=== PATIENT | female | born 1975 | race Caucasian/White ===

== ENCOUNTER 2021-12-29 22:26 | Inpatient (IN) ==
[2021-12-29] MEDS ORDERED: SODIUM CHLORIDE 0.9% 1000ML 1,000 ML IV ONE (23:02)
[2021-12-29] MEDS ORDERED: MoRPHine SULFATE 4 MG/ML 1 ML CARP\\VIAL IV STA (23:02)
--- NOTE | 2021-12-29 23:04 | Emergency Department Note ---
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 Patient states that she gets chemotherapy every 3 weeks in [facility] where she sees her sarcoma specialist and she did just recently complete a round of chemotherapy this past week. On arrival here to the ED the patient is hemodynamically stable, she states she has had subjective fever/chills, states she continues to have dysuria, she had lab work obtained earlier this evening that showed a leukocytosis And urinalysis was concerning for urinary tract infection. Patient was therefore referred to the ED for further assessment. Patient denies any chest pain or shortness of breath, denies any vomiting states she has had some nausea. ROS: - : Urinary frequency, urgency, dysuria - GI: Nausea - GEN: Fever/chills *10 point review systems was conducted and is otherwise negative unless stated above *Outpatient medications and allergy history reviewed PE: General: Alert, NAD HEENT: Normocephalic, atraumatic Eyes: Extraocular eye movement is intact, no scleral erythema Pulmonary: Clear to auscultation bilaterally, no wheezing Cardio: Regular rate and rhythm GI: Abdomen is soft, nontender : Moderate suprapubic tenderness MSK: No evidence of trauma or malformation of the extremities, no edema Skin: No evidence of rash Neuro: Alert, no focal deficits Psychiatric: Cooperative outcome analyst: - An order was placed for continuous cardiac monitoring - Patient was noted to be in Sinus rhythm with a rate of 85 Medical Decision Making: Patient presented to the emergency department with symptoms concerning for urinary tract infection, complains of some subjective fever/chills, she is noted to be on chemotherapy and recently completed a round of chemotherapy this past week in [facility] where she sees her sarcoma specialist. Patient states that she is also on Neupogen. Patient's lab work was reviewed from earlier today, she did have evidence of a leukocytosis greater than 13,000, she was not noted to be neutropenic but she is on Neupogen.Blood cultures were obtained here in the ED as well as lactic acid level which was elevated at 2.2, given this in conjunction with her symptoms and leukocytosis as well as urinalysis concerning for infection, patient was treated with IV ceftriaxone and will be admitted to the hospitalist service for further care which the patient is in agreement with. She was given a dose of morphine here in the ED for discomfort with improvement. COVID-19 test is pending at the time of admission. Patient is in agreement to the above plan. [facility] Hospitalist service was consulted for admission. Diagnosis: 1. Urinary tract infection 2. Leukocytosis 3. History of liposarcoma, on chemotherapy Disposition: ADMIT Yimi Rob DO Emergency Medicine Past Med/Surg History Medical History Alternating constipation and diarrhea Anxiety Asthma hx -- no problems in several years Hx of colonic polyp Nausea and vomiting after administration of anesthetic agent Sarcoma of left lower extremity Surgical History H/O hemorrhoidectomy History of colonoscopy 03/2021 History of surgical removal of ganglion cyst right wrist S/P anal fissurectomy 2009 S/P section 2004, 2008, 2010 S/P hysterectomy partial 2017 left ovary remains S/P right oophorectomy right removed 2019 S/P tonsillectomy and adenoidectomy Family History Mother Diabetes Myocardial infarction Hypertension Stroke Aunt Ovarian cancer Uncle Prostate cancer Grandfather (Maternal) Colon cancer Father Brain cancer Grandmother (Paternal) Cancer liver Other No family history of adverse response to anesthesia Denies family history of Breast cancer Social History Smoking Status: Never smoker Second Hand Exposure: No; Hx Alcohol Use: Yes Alcohol type: wine Alcohol Intake Frequency: 2-4 x/Month Hx Substance Use: No Preferred Language: Irish Communication Ability: Effective Visual Impairment: No Limitations Hearing Ability: Normal Wheel Polisher Required: No Beliefs That Will Affect Care: None marital status: Current Living Situation: Spouse and Family Current Living Situation Comment: Lives with and 3 kids current occupational status: employed 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 How many Children do You have: 3 Feels Safe at Home: Yes during the past year weight has: increased > 10 lbs Dental Care, Regularly: Yes Physical Activity Frequency: 3-4 Times per Week Assistive Devices: None Allergies Allergies Allergy/AdvReac Type Severity Reaction Status Date / Time minocycline Allergy Intermediate Hives Verified 10/02/21 11:55 Home Meds Home Medications Medication Instructions Recorded Confirmed acetaminophen 500 mg tablet 1,000 mg PO Q6H PRN Pain 08/27/21 10/02/21 (Tylenol Extra Strength) docusate sodium 100 mg capsule 100 mg PO BID 08/27/21 10/02/21 (Colace) hydroxyzine HCl 25 mg tablet 25 mg PO QID PRN Anxiety 08/27/21 10/02/21 sennosides 8.6 mg tablet (senna) 8.6 mg PO HS 08/27/21 10/02/21 Results & Data (ED) Vital Signs Vital Signs - 24 hr 12/29/21 22:28 12/30/21 00:26 Temperature 36.0 C L Temperature Source Temporal Artery Scan Pulse Rate 93 H Pulse Rate [Finger] 90 Respiratory Rate 18 16 Respiratory Effort / Characteristics Non-Labored Respiratory Depth Normal Respiratory Pattern Regular Blood Pressure 142/88 H Blood Pressure [Right Arm] 137/74 Blood Pressure Mean 106 Blood Pressure Mean [Right Arm] 95 Blood Pressure Position [Right Arm] Lying Pulse Oximetry 95 96 Oxygen Delivery Method Room Air Room Air Sepsis Recent Fever Within 48 Hours No Sepsis New/Unexplained Change in Mental Status No Sepsis Action Taken by Nursing No Action Required Laboratory Data Lab Results 12/29/21 Range/Units 23:52 Lactate 2.2 H* (0.4-2.0) mmol/L Administered Medications Discontinued Medications Sodium Chloride (Nss 1000ml) 1,000 mls @ 999 mls/hr IV .Q1H1M ONE Stop: 12/30/21 00:02 Last Admin: 12/29/21 23:25 Dose: 999 mls/hr Documented By: FRANKLIN Ceftriaxone Sodium (Rocephin) 2,000 mg in 70 mls @ 140 mls/hr IV NOW STA Stop: 12/30/21 00:31 Last Admin: 12/30/21 00:22 Dose: 140 mls/hr Documented By: FRANKLIN Morphine Sulfate (Morphine Sulfate 4 Mg/Ml 1 Ml Carp\Vial) 4 mg IV NOW STA Stop: 12/29/21 23:03 Last Admin: 12/30/21 00:23 Dose: 4 mg Documented By: FRANKLIN Discharge Plan Visit Data Chief Complaint: Urinary Symptoms Stated Complaint: UTI ISSUE ED Provider: Yimi Rob Discharge Problem: UTI (urinary tract infection) Forms Stand Alone Forms: [facility] Prescriptions Prescriptions: No Action sennosides [senna] 8.6 mg Tablet 8.6 mg PO HS acetaminophen [Tylenol Extra Strength] 500 mg Tablet 1,000 mg PO Q6H PRN (Reason: Pain) docusate sodium [Colace] 100 mg Capsule 100 mg PO BID hydroxyzine HCl 25 mg tablet 25 mg PO QID PRN (Reason: Anxiety) Rx Instructions: TAKE ONE TABLET BY MOUTH FOUR TIMES DAILY Referrals Referrals: Richelle Downing CRNP [Primary Care Provider] - : UTI (urinary tract infection) Qualifiers: Urinary tract infection type: site unspecified Hematuria presence: with hematuria Qualified Code(s): N39.0 - Urinary tract infection, site not specified
[2021-12-30] MEDS ORDERED: cefTRIAXone SODIUM 2,000 MG/70 ML BAG IV STA (00:02)
--- NOTE | 2021-12-30 01:39 | History & Physical Report ---
Date of Service December 30, 2021 Assessment & Plan (1) UTI (urinary tract infection): Plan: Cris Short is a 46-year-old female with past medical history of liposarcoma status postresection currently on chemotherapy, GERD, anxiety who presented Due to urinary symptoms. Complicated UTI As above had UTI-like symptoms after a previous chemo course, which resolved with Bactrim but ultimately did not show any significant bacterial growth on urine culture Vital signs stable, did have low temperature to 36 C Leukocytosis 13.96, lactate 2.2 Ceftriaxone 2 g IV x1 in ED continue on this daily Blood and urine cultures taken and pending Continue maintenance IV fluids CBC, BMP, mag in a.m. Admit to med telemetry Sarcoma of left lower extremity Follows at [facility] in [facility] for sarcoma specialist Has received chemotherapy there, most recently last week Has appointment with radiation oncology here in [place] to discuss potentially starting radiation in this area Appointment on , which the patient is very hopeful she will be able to attend Anxiety Hydroxyzine 4 times daily as needed Allergic rhinitis Claritin daily GERD PPI Constipation Docusate twice daily Senna as needed DVT prophylaxis: Lovenox SQ Dispo: Admit to med telemetry Diet: Regular CODE STATUS: Full (2) Sarcoma of left lower extremity: (3) Anxiety: (4) Alternating constipation and diarrhea: History of Present Illness Primary Care Provider: JOSE ARMANDO Chang Cris Short is a 46-year-old female with past medical history of liposarcoma status postresection currently on chemotherapy, GERD, anxiety who presented Due to urinary symptoms. She has had dysuria, urgency, suprapubic discomfort for 5 to 6 days. Of note, she receives chemotherapy for her liposarcoma in [facility], and recently completed a round of chemo. She does state that after her last round of chemo she had similar symptoms and was treated for UTI at that time with Bactrim for 3 days. She states that her symptoms did resolve, but that the urine culture at that time did not show any significant bacterial growth. She also mentions that since this round of chemotherapy she has had some blood in her urine, which is a known side effect of her chemotherapeutic agent. She does report some subjective fever/chills. Also noted that she had some left lower back/flank pain with this current episode. No reports of chest pain, palpitations, nausea, vomiting, shortness of breath, cough, abdominal pain, headache, dizziness, weakness, numbness, tingling, rashes. In ED received NSS 1 L bolus x1, ceftriaxone 2 g x 1, morphine 4 mg x 1. Lab work significant for a leukocytosis of 13.96, hemoglobin of 10.3, normal electrolytes, lactate of 2.2. Her urinalysis was concerning for UTI. Urine and blood cultures were taken in the ED. Allergies Allergy/AdvReac Type Severity Reaction Status Date / Time minocycline Allergy Intermediate Hives Verified 10/02/21 11:55 Home Medications Medication Instructions Recorded Confirmed Type acetaminophen 500 mg tablet 1,000 mg PO Q6H PRN Pain 08/27/21 12/30/21 History (Tylenol Extra Strength) docusate sodium 100 mg capsule 100 mg PO BID 08/27/21 12/30/21 History (Colace) hydroxyzine HCl 25 mg tablet 25 mg PO QID PRN Anxiety 08/27/21 12/30/21 History sennosides 8.6 mg tablet (senna) 8.6 mg PO HS PRN Constipation 08/27/21 12/30/21 History dexamethasone 1 mg tablet 3 mg PO DAILY 12/30/21 12/30/21 History loratadine 10 mg tablet (Claritin) 10 mg PO DAILY 12/30/21 12/30/21 History omeprazole 20 mg tablet,delayed 20 mg PO BID 12/30/21 12/30/21 History release Past Med/Surg History Medical History (Updated 12/30/21 @ 13:48 by Bette Rivera) Alternating constipation and diarrhea Anxiety Asthma hx -- no problems in several years Hx of colonic polyp Nausea and vomiting after administration of anesthetic agent Sarcoma of left lower extremity Surgical History H/O hemorrhoidectomy History of colonoscopy 03/2021 History of surgical removal of ganglion cyst right wrist S/P anal fissurectomy 2008 S/P section 2004, 2008, 2010 S/P hysterectomy partial 2017 left ovary remains S/P right oophorectomy right removed 2019 S/P tonsillectomy and adenoidectomy Family History Mother Diabetes Myocardial infarction Hypertension Stroke Aunt Ovarian cancer Uncle Prostate cancer Grandfather (Maternal) Colon cancer Father Brain cancer Grandmother (Paternal) Cancer liver Other No family history of adverse response to anesthesia Denies family history of Breast cancer Social History Smoking Status: Never smoker Second Hand Exposure: No; Hx Alcohol Use: Yes Alcohol type: wine Alcohol Intake Frequency: 2-4 x/Month Hx Substance Use: No Preferred Language: Uzbek Communication Ability: Effective Visual Impairment: No Limitations Hearing Ability: Normal Urban Sociologist Required: No Beliefs That Will Affect Care: None marital status: Current Living Situation: Spouse Current Living Situation Comment: lives @ home w/ & 3 kids current occupational status: employed 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 NAD. HEENT: PERRL, EOMI. Moist mucous membranes. NECK: No JVD. No lymphadenopathy. CHEST/LUNGS: CTAB A/P. No crackles, wheezes, rales, rhonchi. HEART: RRR. No m/g/r. No carotid bruits. ABDOMEN: NT/ND, soft. BS+ x4. CVA tenderness on the left EXTREMITIES: No cyanosis, no clubbing, no edema SKIN: Warm and dry. No rashes or lesions. PSYCHIATRIC: Euthymic affect, no SI, no pressured speech, no hallucinations NEUROLOGIC: No FND. CN II-XII grossly intact. Results & Data Results & Data ([facility]) Vital Signs (Past 12 Hours) Vital Signs Temp Pulse Pulse Resp BP BP Pulse Ox 12/30/21 00:26 90 16 137/74 96 12/29/21 22:28 36.0 C L 93 H 18 142/88 H 95 O2 Del Method 12/30/21 00:26 Room Air 12/29/21 22:28 Room Air Supervising Physician Co-Signing Physician Notes Attending addendum: I have physically seen this patient, have supervised the medical residents activities, and agree with the H&P unless as otherwise noted. Assessment and Plan: Urinary tract infection/immunocompromised patient on chemotherapy- Follow urine culture and sensitivity Ceftriaxone 2 g IV daily Continue IV fluids Follow serial CBC with differential, chemistry and magnesium level Sarcoma of left lower extremity- [facility] in [facility] guiding care Ongoing chemotherapy care Radiation oncology locally Remaining orders and notations as noted Resident Activity Tracking Resident Involvement: Resident Care Provided Care Provided: Adult Hospital Medicine (1) UTI (urinary tract infection) Hematuria presence: with hematuria Urinary tract infection type: site unspecified Qualified Code(s): N39.0 - Urinary tract infection, site not specified; R31.9 - Hematuria, unspecified
[2021-12-30] MEDS ORDERED: ACETAMINOPHEN 500 MG TAB ONE (03:20)
[2021-12-30] MEDS ORDERED: ONDANSETRON INJ 2 MG/ML 2 ML VIAL IV PRN (04:26)
[2021-12-30] MEDS ORDERED: hydrOXYzine HCl 25 MG TAB PO PRN (04:26)
[2021-12-30] MEDS ORDERED: SENNA 8.6 MG TAB PO PRN (04:26)
[2021-12-30] MEDS ORDERED: ACETAMINOPHEN 500 MG TAB PO PRN (04:26)
[2021-12-30] MEDS ORDERED: POLYETHYLENE (MIRALAX) 17 GM PACK PO PRN (04:26)
[2021-12-30] MEDS ORDERED: MoRPHine SULFATE 2 MG/ML CARP IV PRN (04:33)
[2021-12-30] MEDS: SODIUM CHLORIDE 0.9% 1000ML 1,000 ML IV SCH ×2 (04:42→15:01)
--- NOTE | 2021-12-30 07:10 | Hospitalist Progress Note ---
Date of Service December 30, 2021 Assessment & Plan (1) UTI (urinary tract infection): Plan: Cris Short is a 46-year-old female with past medical history of liposarcoma status postresection currently on chemotherapy, GERD, anxiety who presented Due to urinary symptoms. Complicated UTI As above had UTI-like symptoms after a previous chemo course, which resolved with Bactrim but ultimately did not show any significant bacterial growth on urine culture Vital signs stable, did have low temperature to 36 C Leukocytosis 13.96, lactate 2.2 Ceftriaxone 2 g IV x1 in ED continue on this daily Blood and urine cultures taken and pending Continue maintenance IV fluids CBC, BMP, mag in a.m. Admit to med telemetry Sarcoma of left lower extremity Follows at [facility] in [facility] for sarcoma specialist Has received chemotherapy there, most recently last week Has appointment with radiation oncology here in [place] to discuss potentially starting radiation in this area Appointment on , which the patient is very hopeful she will be able to attend Anxiety Hydroxyzine 4 times daily as needed Allergic rhinitis Claritin daily GERD PPI Constipation Docusate twice daily Senna as needed DVT prophylaxis: Lovenox SQ Dispo: Admit to med telemetry Diet: Regular CODE STATUS: Full (2) Sarcoma of left lower extremity: (3) Anxiety: (4) Alternating constipation and diarrhea: Admission and Anticipated Discharge Date Admission Date: December 30, 2021 Subjective 46 year old female with a past medical history of liposarcoma s/p resection currently on chemotherapy, GERD, anxiety that presented with urinary symptoms; dysuria, urgency, suprapubic pain. fever/chills, left low back/flank pain Review of Systems Review of Systems: As per HPI Results & Data Results & Data ([facility]) Vital Signs (Past 12 Hours) Vital Signs Temp Pulse Pulse Resp BP BP Pulse Ox 12/30/21 04:26 70 12/30/21 04:26 36.9 C 70 16 113/70 98 12/30/21 04:26 36.9 C 70 16 113/70 98 12/30/21 03:53 82 21 140/82 97 12/30/21 02:00 69 19 112/72 96 12/30/21 00:26 90 16 137/74 96 12/29/21 22:28 36.0 C L 93 H 18 142/88 H 95 O2 Del Method 12/30/21 04:26 12/30/21 04:26 Room Air 12/30/21 04:26 Room Air 12/30/21 03:53 Room Air 12/30/21 02:00 Room Air 12/30/21 00:26 Room Air 12/29/21 22:28 Room Air (1) UTI (urinary tract infection) Hematuria presence: with hematuria Urinary tract infection type: site unspecified Qualified Code(s): N39.0 - Urinary tract infection, site not specified; R31.9 - Hematuria, unspecified
[2021-12-30] MEDS: HEPARIN SOD 5,000 UNIT/0.5 ML VIAL SQ SCH ×3 (08:33→20:11)
[2021-12-30 09:20] LABS: ALC (manual) 0.47 K/uL (1.2-3.4); Lymphocytes # (manual) 0.47 K/uL (1.2-3.4); Lymphocytes % (manual) 4 %; Neutrophils % (manual) 96 %
[2021-12-30 09:21] LABS: Hematocrit (blood only) 30.9 % (34.1-44.9); Hemoglobin 9.9 g/dl (12.0-16.0); Mean Corpuscular Hemoglobin 28.8 pg (25.0-34.0); Mean Corpuscular Volume 89.8 fL (80.0-100.0); Mean Platelet Volume 9.8 fL (9.4-12.3); Platelet Count 308 K/uL (130-400); RDW Standard Deviation 59.1 fL (36.4-46.3); Red Blood Count 3.44 M/uL (3.93-5.22); White Blood Count 11.67 K/ul (4.8-10.8)
[2021-12-30 09:27] LABS: Calcium 8.9 mg/dl (8.5-10.1); Creatinine Clr Calc Pharmacy 160.6 ml/min; Est GFR (African American) 135.5 ml/min; Est GFR (Non-African American) 116.9 ml/min; Magnesium 2.2 mg/dl (1.7-2.4); Potassium 3.8 mmol/L (3.5-5.1)
[2021-12-30] MEDS: DOCUSATE SODIUM 100 MG CAP PO SCH ×2 (09:28→20:11)
[2021-12-30] MEDS: LORATADINE 10 MG TAB PO SCH (09:28)
--- NOTE | 2021-12-30 10:57 | Hospitalist Progress Note ---
Date of Service December 30, 2021 Assessment & Plan (1) UTI (urinary tract infection): Plan: - Had UTI-like symptoms after a previous chemo course, which resolved with Bactrim but ultimately did not show any significant bacterial growth on urine culture. - Vital signs stable, did have low temperature to 36 C. - Leukocytosis, 13.96, lactate 2.2. - Ceftriaxone 2 g IV x 1 in ED - continue on this daily. - Blood and urine cultures taken and pending. - CBC results revealed anemia. MCV is normal, but RDW is high. - Monitor for further episodes of hematuria. - Consider CT scan for kidney stones. (2) Hematuria: Plan: - May be a side effect of ifosfamide - Called oncologist, who recommended q12 Hgb checks due to 2 point drop since 12/24 - Called oncologist, who recommended aggressive hydration - Called oncologist, who recommended urologist consult to check for obstruction (3) Sarcoma of left lower extremity: Plan: - Follows at [facility] for sarcoma. - Receives chemotherapy there, most recently lat week. - Has appointment with rad/onc here in [place] to discuss the potential of starting radiation therapy locally. This appointment is this and she is very hopeful to attend. (4) Anxiety: Plan: - Hydroxyzine 4 times daily as needed. (5) Alternating constipation and diarrhea: Plan: - Docusate twice daily, Senna as needed. (6) DVT prophylaxis: Plan: - Lovenox SQ - AM dose held by nursing 2/2 hematuria Admission and Anticipated Discharge Date Admission Date: December 30, 2021 Supervising Physician Co-Signing Physician Notes I personally examined the patient and verified all desouza points of history and exam, discussed case, and agree with decision making with Aneesh Rivera MS2 Urinary symptoms are feeling better. Blood clearing. Medical student called patient's oncologist and discussed situationreceived recommendations on phosphomide induced hemorrhagic cystitis. Vitals noted, in general she is awake and alert pleasant no distress. HEENT normocephalic atraumatic mucous membranes moist. Breathing unlabored no accessory muscle use good effort. Skin shows no rashes no pallor or icterus. Abdomen with mild suprapubic tenderness no guarding rebound or rigidity. Dysuriainfectious cystitis versus chemo induced hemorrhagic cystitiseither way appears to be improving. With negative culture it does increase concern on chemo induced, but certainly there are many urinary tract infections or other culture is equivocal or negative in the face of clearly infectious symptomsand she is immune compromisedso to that end continue ceftriaxone. Continue fluid support and follow hemoglobin. Per oncology recommendations will ask urology for evaluation. Likely home once symptoms have resolved as long as she continues to remain this hemodynamically stable. Etienne Lynch is a pleasant and friendly woman with a history of sarcoma s/p surgical resection of tumor and is currently seeing her oncologist in [place] for chemotherapy. Her last cycle of chemotherapy was last , Wednesday, and Wednesday. She presented to the ED yesterday with frequent urination and suprapubic fullness. She noted that she was aware this could be a side effect of her ifosfamide, but when she began having more frequent urination and pain, she arrived at the hospital. She was awake, alert, and finishing breakfast at bedside. She stated that she noticed improvement last night after her first dose of ceftriaxone, but this morning she "felt as though she was back where she started." She states that she is very tired because she is getting up to urinate every 20 to 30 minutes and cannot get adequate rest. She has persistent suprapubic fullness and and urge to urinate. She also has increased urethral irritation today. Patient stated that she would like us to call her oncologist's office at the number she provided to discuss her current treatment plan. Patient was given morphine for pain. She states that this helped her sleep, and she slept for a few hours last night/early this morning. Patient's second urine of the day produced several blood clots. This is new for her. Nursing withheld morning heparin as a result. At 2:11 PM, Cris's oncologist Dr. Trejo was called. She recommended q12 CBC checks as her Hgb dropped 2 points from 12/24/21. She also recommended aggressive hydration and a consult with urology for follow up to determine whether there is an obstruction. She requested that we follow up with her via phone or email tomorrow. Review of Systems Review of Systems: Const: WDWN. Appropriate affect. HEENT: No blurred vision, headaches, or dizziness. Normal neck ROM. Resp: No SOB or JACK. Cardio: No chest pain or pressure. GI: No nausea or diarrhea. : As per HPI. MS: No soreness or aches, normal ROM. Skin: No rashes. Neuro: No headaches or weakness. Endo: Per HPI. Heme/Lymph: As per HPI. Allergic/Imm: As per HPI. Psych: No homicidal or suicidal ideation. Physical Exam Physical Exam: Const: Pleasant. A&O x3. HEENT: Normocephalic, atraumatic, clear sclera, pink and moist mucous membranes. Resp: CAB no r/r/w. Cardio: RRR no r/m/g. GI: No nausea or diarrhea. : No CVA tenderness. As per HPI. MS: Normal ROM bilaterally. Skin: Numerous freckles. Neuro: No strabismus or nystagmus. Endo: No polydipsia or polyphagia. Rest per HPI. Heme/Lymph: As per HPI. Allergic/Imm: As per HPI. Psych: Appropriate affect. Results & Data Results & Data ([facility]) Vital Signs (Past 12 Hours) Vital Signs Temp Pulse Pulse Resp BP BP Pulse Ox 12/30/21 08:14 36.6 C 65 19 123/85 97 12/30/21 07:06 72 12/30/21 04:26 70 12/30/21 04:26 36.9 C 70 16 113/70 98 12/30/21 04:26 36.9 C 70 16 113/70 98 12/30/21 03:53 82 21 140/82 97 12/30/21 02:00 69 19 112/72 96 12/30/21 00:26 90 16 137/74 96 O2 Del Method 12/30/21 08:14 Room Air 12/30/21 07:06 12/30/21 04:26 12/30/21 04:26 Room Air 12/30/21 04:26 Room Air 12/30/21 03:53 Room Air 12/30/21 02:00 Room Air 12/30/21 00:26 Room Air CBC w Diff Results Results CBC w Diff Results: RBC 3.44 M/uL (3.93-5.22) L 12/30/21 WBC 11.67 K/ul (4.8-10.8) H 12/30/21 Hgb 9.9 g/dl (12.0-16.0) L 12/30/21 Hct 30.9 % (34.1-44.9) L 12/30/21 MCV 89.8 fL (80.0-100.0) 12/30/21 MCH 28.8 pg (25.0-34.0) 12/30/21 MCHC 32.0 g/dL (32.0-36.0) 12/30/21 RDW Standard Deviation 59.1 fL (36.4-46.3) H 12/30/21 RDW Coefficient of Variation 18.0 % (11.5-14.5) H 12/30/21 Plt Count 308 K/uL (130-400) 12/30/21 MPV 9.8 fL (9.4-12.3) 12/30/21 Neutrophils (%) (Auto) 62.2 % 08/27/21 Lymphocytes (%) (Auto) 25.4 % 08/27/21 Monocytes # (Auto) 1.01 K/uL (0.11-0.59) H 08/27/21 Eosinophils # (Auto) 0.36 K/uL (0-0.5) 08/27/21 Immature Granulocyte % (Auto) 0.3 % 08/27/21 Neutrophils # (Auto) 7.26 K/uL (1.4-6.5) H 08/27/21 Lymphocytes # (Auto) 2.97 K/uL (1.2-3.4) 08/27/21 Monocytes # (Auto) 1.01 K/uL (0.11-0.59) H 08/27/21 Eosinophils # (Auto) 0.36 K/uL (0-0.5) 08/27/21 Basophils # (Auto) 0.05 K/uL (0-0.2) 08/27/21 Immature Granulocyte # (Auto) 0.03 K/uL (0.00-0.02) H 08/27 ANC 11.20 K/uL (1.4-6.5) H 12/30/21 ALC 0.47 K/uL (1.2-3.4) L 12/30/21 Neutrophils % (Manual) 96 % 12/30/21 Lymphocytes % (Manual) 4 % 12/30/21 Neutrophils # (Manual) 11.20 K/uL (1.4-6.5) H 12/30/21 Lymphocytes # (Manual) 0.47 K/uL (1.2-3.4) L 12/30/21 Hypersegmented Neutrophils 1+ 12/30/21 (1) UTI (urinary tract infection) Hematuria presence: with hematuria Urinary tract infection type: site unspecified Qualified Code(s): N39.0 - Urinary tract infection, site not specified; R31.9 - Hematuria, unspecified
[2021-12-30] MEDS ORDERED: PANTOprazole 40 MG in SYRINGE 0 ML IV SCH (11:00)
--- NOTE | 2021-12-30 19:53 | Billing Data ---
Date of Service December 30, 2021 Coding Level of Care Code 70496 Initial Inpt Care Lvl 3
[2021-12-30 21:42] LABS: Hematocrit (blood only) 27.4 % (34.1-44.9); Hemoglobin 8.9 g/dl (12.0-16.0); Mean Corpuscular Hgb Conc 32.5 g/dL (32.0-36.0); Mean Corpuscular Volume 89.3 fL (80.0-100.0); Mean Platelet Volume 9.8 fL (9.4-12.3); Platelet Count 230 K/uL (130-400); RDW Coefficient of Variation 18.1 % (11.5-14.5); RDW Standard Deviation 58.6 fL (36.4-46.3); Red Blood Count 3.07 M/uL (3.93-5.22); White Blood Count 6.56 K/ul (4.8-10.8)
[2021-12-30 22:01] LABS: ALC (manual) 0.92 K/uL (1.2-3.4); ANC (manual) 5.64 K/uL (1.4-6.5); Lymphocytes # (manual) 0.92 K/uL (1.2-3.4); Lymphocytes % (manual) 14 %; Neutrophils # (manual) 5.64 K/uL (1.4-6.5); Neutrophils % (manual) 86 %; RBC Morphology Unremarkable
[2021-12-30] MEDS: cefTRIAXone SODIUM 2,000 MG in DEXTROSE 5% 50 ML IV SCH (23:13)
[2021-12-31] MEDS: SODIUM CHLORIDE 0.9% 1000ML 1,000 ML IV SCH ×2 (00:34→09:55)
[2021-12-31] MEDS: HEPARIN SOD 5,000 UNIT/0.5 ML VIAL SQ SCH (05:04)
[2021-12-31 06:42] LABS: Hematocrit (blood only) 25.6 % (34.1-44.9); Hemoglobin 8.3 g/dl (12.0-16.0); Mean Corpuscular Hemoglobin 29.1 pg (25.0-34.0); Mean Corpuscular Hgb Conc 32.4 g/dL (32.0-36.0); Mean Corpuscular Volume 89.8 fL (80.0-100.0); Mean Platelet Volume 9.8 fL (9.4-12.3); Platelet Count 201 K/uL (130-400); RDW Coefficient of Variation 17.9 % (11.5-14.5); RDW Standard Deviation 58.6 fL (36.4-46.3); Red Blood Count 2.85 M/uL (3.93-5.22); White Blood Count 3.33 K/ul (4.8-10.8)
[2021-12-31 07:08] LABS: BUN Creatinine Ratio 30.4 (10-20); Calcium 8.1 mg/dl (8.5-10.1); Creatinine Clr Calc Pharmacy 177.2 ml/min; Est GFR (African American) 139.2 ml/min; Est GFR (Non-African American) 120.1 ml/min; Magnesium 2.1 mg/dl (1.7-2.4); Potassium 3.5 mmol/L (3.5-5.1)
[2021-12-31 07:13] LABS: Lymphocytes % (manual) 36 %; Monocytes # (manual) 0.07 K/uL (0.24-0.82); Monocytes % (manual) 2 %; Neutrophils % (manual) 63 %; RBC Morphology Unremarkable
[2021-12-31] MEDS: LORATADINE 10 MG TAB PO SCH (08:43)
[2021-12-31] MEDS: DOCUSATE SODIUM 100 MG CAP PO SCH (08:44)
[2021-12-31] MEDS: cefTRIAXone SODIUM 2,000 MG in DEXTROSE 5% 50 ML IV SCH (08:56)
[2021-12-31] MEDS ORDERED: PANTOprazole 40 MG TAB PO SCH (09:00)
--- NOTE | 2021-12-31 10:53 | Discharge Summary ---
Date of Service December 31, 2021 Admission HPI Per Admitting Provider Cris Short is a 46-year-old female with past medical history of liposarcoma status postresection currently on chemotherapy, GERD, anxiety who presented Due to urinary symptoms. She has had dysuria, urgency, suprapubic discomfort for 5 to 6 days. Of note, she receives chemotherapy for her liposarcoma in [facility], and recently completed a round of chemo. She does state that after her last round of chemo she had similar symptoms and was treated for UTI at that time with Bactrim for 3 days. She states that her symptoms did resolve, but that the urine culture at that time did not show any significant bacterial growth. She also mentions that since this round of chemotherapy she has had some blood in her urine, which is a known side effect of her chemotherapeutic agent. She does report some subjective fever/chills. Also noted that she had some left lower back/flank pain with this current episode. No reports of chest pain, palpitations, nausea, vomiting, shortness of breath, cough, abdominal pain, headache, dizziness, weakness, numbness, tingling, rashes. In ED received NSS 1 L bolus x1, ceftriaxone 2 g x 1, morphine 4 mg x 1. Lab work significant for a leukocytosis of 13.96, hemoglobin of 10.3, normal electrolytes, lactate of 2.2. Her urinalysis was concerning for UTI. Urine and blood cultures were taken in the ED. Admission Exam Per Admitting Provider GENERAL: A&Ox3. NAD. HEENT: PERRL, EOMI. Moist mucous membranes. NECK: No JVD. No lymphadenopathy. CHEST/LUNGS: CTAB A/P. No crackles, wheezes, rales, rhonchi. HEART: RRR. No m/g/r. No carotid bruits. ABDOMEN: NT/ND, soft. BS+ x4. CVA tenderness on the left EXTREMITIES: No cyanosis, no clubbing, no edema SKIN: Warm and dry. No rashes or lesions. PSYCHIATRIC: Euthymic affect, no SI, no pressured speech, no hallucinations NEUROLOGIC: No FND. CN II-XII grossly intact. Principal Diagnosis Complicated urinary tract infection Discharge Exam Const: Pleasant. A&O x3. HEENT: Normocephalic, atraumatic, clear sclera, pink and moist mucous membranes. Resp: CAB no r/r/w. Cardio: RRR no r/m/g. GI: No nausea or diarrhea. : No CVA tenderness. As per HPI. MS: Normal ROM bilaterally. Skin: Numerous freckles. No erythema. Neuro: No strabismus or nystagmus. Endo: No polydipsia or polyphagia. Rest per HPI. Heme/Lymph: As per HPI. Allergic/Imm: As per HPI. Psych: Appropriate affect. Discharge Data Allergies Allergy/AdvReac Type Severity Reaction Status Date / Time minocycline Allergy Intermediate Hives Verified 10/02/21 11:55 Consultations 12/30/21 00:43 ED Decision to Admit Stat 12/30/21 16:02 Consult Urology Routine Hospital Course (1) UTI (urinary tract infection): Presented to the ED with polyuria and dysuria. Given IV ceftriaxone. - Prescribed 5 days of PO cefdinir BID. - Continue to monitor symptoms. (2) Hematuria: May be a side effect of ifosfamide. Contacted oncologist, who recommended monitoring blood counts, hydration, and consulting urology. - Blood counts downtrending, likely a result of chemotherapy. Blood clots in urine decreasing. - Urology consulted and did not feel as though a cystoscopy was necessary. - Continue to monitor for resolution of symptoms. (3) Sarcoma of left lower extremity: Attend appointment with oncology here in [place] to discuss the potential of starting radiation therapy locally. - Continue to follow to oncology. (4) Anxiety: Hydroxyzine 4 times daily as needed. - Continue to manage. At goal. (5) Alternating constipation and diarrhea: Docusate twice daily, Senna as needed. - Continue to manage. At goal. (6) DVT prophylaxis: Total Time Total Time Spent Total Time Spent (In Minutes): <30 Discharge Plan Discharge Items Patient Disposition: Home - Self-Care Reason For Visit: UTI Discharge Diagnosis: Hemorrhagic Cystitis Activity: Resume your previous activity Non-emergency contact: Primary Care Provider and Oncologist Call non-emergency contact if: you have any medication questions, your symptoms worsen, your pain is worsening and you have a fever Follow-up/Referrals: Richelle Downing CRNP [Primary Care Provider] - 01/07/22 2:10 pm Diet: Regular Addtl Attending Provider Instructions: You were admitted for cystitis; inflammation of your bladder. It could be caused by infection or from the chemotherapy. We will continue to treat with antibiotics for a total of 7 days. You received 2 days of antibiotics in the hospital. We will send another 5 days to the pharmacy. Please take cefdinir twice a day starting tomorrow for 5 days. If your urinary symptoms worsening or you develop a fever please let your primary care doctor know right away or come back to the ER. Your hemoglobin (blood count) was low. This could be a side effect from the chemotherapy. We would like you to get a CBC (blood count) at your radiation oncology appointment tomorrow. The blood in your urine could also be contributing to the anemia, but probably to a lesser extent than the chemotherapy. If the blood in your urine gets worse or you start to feel lightheaded/dizzy please let your primary care doctor know right away or come back to the ER. To Do - Take cefdinir twice daily starting tomorrow. We sent this prescription to your pharmacy. - You will need a blood count (CBC) at your oncology appointment tomorrow to ensure that you blood count does not continue to drop We have requested a follow up appointment with your PCP. Pending Studies at Discharge: No Stand-Alone Forms: My [facility] Medications and DC Order Prescriptions: New cefdinir 300 mg capsule 300 mg PO BID 5 Days Qty: 10 0RF Continued sennosides [senna] 8.6 mg Tablet 8.6 mg PO HS PRN (Reason: Constipation) acetaminophen [Tylenol Extra Strength] 500 mg Tablet 1,000 mg PO Q6H PRN (Reason: Pain) docusate sodium [Colace] 100 mg Capsule 100 mg PO BID hydroxyzine HCl 25 mg tablet 25 mg PO QID PRN (Reason: Anxiety) Rx Instructions: TAKE ONE TABLET BY MOUTH FOUR TIMES DAILY dexamethasone 1 mg Tablet 3 mg PO DAILY Label Comments: Pt. reports last dose is to be taken tomorrow. loratadine [Claritin] 10 mg Tablet 10 mg PO DAILY Label Comments: Per patient taken for 1 week after neulasta injection. Currently taking. omeprazole 20 mg Tablet,Delayed Release (Dr/Ec) 20 mg PO BID Label Comments: Per patient taken for 1 week after chemotherapy. Currently taking. Discharge Orders: Discharge Order (Routine); Ordered 12/31/21 Ordered By: Ema Arzola/Other Patient Handouts: Anemia During Cancer, ED Cystitis Female Adult Admission Data Admit Date/Time: 12/30/21 01:47 Attending Provider: Dima Jacome Admit Provider: Corby Petersen Primary Care Provider: Richelle Downing Other Providers: Junaid Rios ; Kanu White ; Juancarlos Curtis ; Brian Solis ; Gloria Holloway ; Maurilio Camarillo ; Mercy Marin ; Lou Aj ; Ernesto Cochran ; Sobeida Flores ; Raquel Way ; Luis Tanner ; Jaydon Russ Other Interventions: Discharge Summary Assessment (RN) Last Done: 12/31/21 12:10 Supervising Physician Co-Signing Physician Notes I personally examined the patient and verified all desouza points of history and exam, discussed case, and agree with decision making with Aneesh MACDONALD overall feeling better urinary frequency better now down to mild pressure hematuria mostly clearing. feels up to going home Vitals noted, in general she is awake and alert pleasant no distress. HEENT normocephalic atraumatic mucous membranes moist. Breathing unlabored no accessory muscle use good effort. Skin shows no rashes no pallor or icterus. Dysuriainfectious cystitis versus chemo induced hemorrhagic cystitiseither way appears to be improving. appreciate urology input. safe for home, empiric PO abx. follow urine/urinary symptoms. Hgb dropping far more likely from myelosuppression from chemo than from blood loss given improvement in hematuria, hemodynamic stability, etc Urine Analysis / Culture Results Urinalysis: Urine Color Dark Yellow 12/29/21 Urine Appearance Clear (Clear) 12/29/21 Urine pH 6.0 (4.5-7.5) 12/29/21 Ur Specific [place] 1.028 (1.000-1.030) 12/29/21 Urine Protein 2+ (Negative) H 12/29/21 Urine Glucose (UA) 3+ (Negative) H 12/29/21 Urine Ketones Trace (Negative) H 12/29/21 Urine Blood 3+ (Negative) H 12/29/21 Urine Nitrite Positive (Negative) A 12/29/21 Urine Bilirubin Negative (Negative) 12/29/21 Urine Urobilinogen Negative (Negative) 12/29/21 Ur Leukocyte Esterase Negative (Negative) 12/29/21 Urine WBC (Auto) 5-10 /hpf (0-5) H 12/29/21 Urine RBC (Auto) >30 /hpf (0-4) H 12/29/21 Urine Hyaline Casts (Auto) 0 /lpf (0-5) 12/29/21 Urine Epithelial Cells (Auto) 20-30 /lpf (0-5) H 12/29/21 Urine Bacteria (Auto) Negative (Negative) 12/29/21 Urine Culture: Micro Urine Specimen 12/29/21 CBC w Diff Results Results CBC w Diff Results: RBC 2.85 M/uL (3.93-5.22) L 12/31/21 WBC 3.33 K/ul (4.8-10.8) L 12/31/21 Hgb 8.3 g/dl (12.0-16.0) L 12/31/21 Hct 25.6 % (34.1-44.9) L 12/31/21 MCV 89.8 fL (80.0-100.0) 12/31/21 MCH 29.1 pg (25.0-34.0) 12/31/21 MCHC 32.4 g/dL (32.0-36.0) 12/31/21 RDW Standard Deviation 58.6 fL (36.4-46.3) H 12/31/21 RDW Coefficient of Variation 17.9 % (11.5-14.5) H 12/31/21 Plt Count 201 K/uL (130-400) 12/31/21 MPV 9.8 fL (9.4-12.3) 12/31/21 Neutrophils (%) (Auto) 62.2 % 08/27/21 Lymphocytes (%) (Auto) 25.4 % 08/27/21 Monocytes # (Auto) 1.01 K/uL (0.11-0.59) H 08/27/21 Eosinophils # (Auto) 0.36 K/uL (0-0.5) 08/27/21 Immature Granulocyte % (Auto) 0.3 % 08/27/21 Neutrophils # (Auto) 7.26 K/uL (1.4-6.5) H 08/27/21 Lymphocytes # (Auto) 2.97 K/uL (1.2-3.4) 08/27/21 Monocytes # (Auto) 1.01 K/uL (0.11-0.59) H 08/27/21 Eosinophils # (Auto) 0.36 K/uL (0-0.5) 08/27/21 Basophils # (Auto) 0.05 K/uL (0-0.2) 08/27/21 Immature Granulocyte # (Auto) 0.03 K/uL (0.00-0.02) H 08/27 ANC 2.10 K/uL (1.4-6.5) 12/31/21 ALC 1.20 K/uL (1.2-3.4) 12/31/21 Neutrophils % (Manual) 63 % 12/31/21 Lymphocytes % (Manual) 36 % 12/31/21 Monocytes % (Manual) 2 % 12/31/21 Neutrophils # (Manual) 2.10 K/uL (1.4-6.5) 12/31/21 Lymphocytes # (Manual) 1.20 K/uL (1.2-3.4) 12/31/21 Monocytes # (Manual) 0.07 K/uL (0.24-0.82) L 12/31/21 Hypersegmented Neutrophils 1+ 12/30/21 Red Blood Cell Morphology Unremarkable 12/31/21
--- NOTE | 2021-12-31 11:22 | Urology Consultation ---
Date of Consultation December 31, 2021 Assessment & Plan (1) Hemorrhagic cystitis: Hemorrhagic cystitis after cyclophosphamide Did receive mesna during her treatment, however still developed hemorrhagic cystitis Slight drop in hemoglobin but this may be attributed to the treatment itself rather than active bleeding I have reassured her that we manages predominantly with supportive care AZO, hydration, time She does not have further cyclophosphamide scheduled but it would be important to receive meds now with any future treatments She expressed good understanding I am not certain she needs any specific urological follow-up at this time She has been on antibiotics no would recommend completing the antibiotic course as much for prophylaxis as treatment History of Present Illness Attending Physician: Dima Jacome DO History of Present Illness 46y/o female with sarcoma being treated by [facility] on cyclophosphamide just completed her 4th cycle hasDysuria and mildly cycle She did receive Mesna with cyclophosphamide Unfortunately she is now hospitalized after experiencing significant gross hematuria severe dysfunction and discomfort over the past few days This has largely resolved over the past 24 hours not required a catheter and she reports that her urine was predominantly clear this morning She does not have further doses of cyclophosphamide scheduled Allergies Allergy/AdvReac Type Severity Reaction Status Date / Time minocycline Allergy Intermediate Hives Verified 10/02/21 11:55 Home Medications Medication Instructions Recorded Confirmed Type acetaminophen 500 mg tablet 1,000 mg PO Q6H PRN Pain 08/27/21 12/30/21 History (Tylenol Extra Strength) docusate sodium 100 mg capsule 100 mg PO BID 08/27/21 12/30/21 History (Colace) hydroxyzine HCl 25 mg tablet 25 mg PO QID PRN Anxiety 08/27/21 12/30/21 History sennosides 8.6 mg tablet (senna) 8.6 mg PO HS PRN Constipation 08/27/21 12/30/21 History dexamethasone 1 mg tablet 3 mg PO DAILY 12/30/21 12/30/21 History loratadine 10 mg tablet (Claritin) 10 mg PO DAILY 12/30/21 12/30/21 History omeprazole 20 mg tablet,delayed 20 mg PO BID 12/30/21 12/30/21 History release Patient History Medical History Alternating constipation and diarrhea Anxiety Asthma hx -- no problems in several years Hx of colonic polyp Nausea and vomiting after administration of anesthetic agent Sarcoma of left lower extremity Surgical History H/O hemorrhoidectomy History of colonoscopy 03/2021 History of surgical removal of ganglion cyst right wrist S/P anal fissurectomy 2009 S/P section 2005, 2008, 2010 S/P hysterectomy partial 2017 left ovary remains S/P right oophorectomy right removed 2019 S/P tonsillectomy and adenoidectomy Family History Mother Diabetes Myocardial infarction Hypertension Stroke Aunt Ovarian cancer Uncle Prostate cancer Grandfather (Maternal) Colon cancer Father Brain cancer Grandmother (Paternal) Cancer liver Other No family history of adverse response to anesthesia Denies family history of Breast cancer Social History Smoking Status: Never smoker Second Hand Exposure: No; Hx Alcohol Use: Yes Alcohol type: wine Alcohol Intake Frequency: 2-4 x/Month Hx Substance Use: No Preferred Language: Estonian Communication Ability: Effective Visual Impairment: No Limitations Hearing Ability: Normal Assistant Operator Required: No Beliefs That Will Affect Care: None marital status: Current Living Situation: Spouse Current Living Situation Comment: lives @ home w/ & 3 kids current occupational status: employed 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 How many Children do You have: 3 Other Information That Helps Us Care for You: No Feels Safe at Home: Yes Safety Concerns: Feels Safe At This Time during the past year weight has: increased > 10 lbs Dental Care, Regularly: Yes Physical Activity Frequency: 3-4 Times per Week Assistive Devices: None Assistive Devices Comment: has glasses but does not wear them Physical Exam Constitutional: well developed and well nourished Respiratory: no respiratory distress Cardiovascular: Extremities: no pedal edema Gastrointestinal (Abdomen): Inspection/Auscultation: abdomen normal to inspection Results & Data ([facility]) Vital Signs (Past 12 Hours) Vital Signs Temp Pulse Pulse Resp BP Pulse Ox O2 Del Method 12/31/21 11:07 36.8 C 75 16 118/72 99 Room Air 12/31/21 07:16 61 12/31/21 03:42 36.8 C 75 18 106/70 96 Room Air PG Care Time/CCT Total # of Minutes Spent Total Time Spent with Patient: Total time spent is greater than 50% in coordination of care (as documented) at patient's floor/unit and/or counseling patient: Coding Level of Care Code 84798 Inpt Consult Level 4 Diagnoses Hemorrhagic cystitis N30.91
--- NOTE | 2021-12-31 12:35 | Billing Data ---
Date of Service December 31, 2021 Coding Level of Care Code D/C DAY MANAGEMENT <30 MINS
== END 2021-12-31 12:53 | disposition home or self-care (01) | DRG 690 ==
LOC: ED 22:26 → SUATTDRO 12-30 01:47 → 2W 12-30 01:47